=== PATIENT | female | born 1950 | race Caucasian/White ===

== ENCOUNTER → 2022-07-08 | Outpatient (CLI) | payer MEDICARE ==
[~2022-07-08] MED LIST: AMLO25TA PO; AZEL0.055 NARES; CYAN100050 PO; FOLI1TAB11 PO; FURO20TA2 PO; FURO40TA2 PO; GABA-282 PO; JARD1TAB PO; LEFL1TAB4 PO; LEVO50TA5 PO; LEVO88TA3 PO; MONT10TA97 PO; NEUR100C PO; POTA-151 PO; SPIR-10 PO; TRAM50TA2 PO; VITA-183 PO; VITA500C24 PO
[2022-07-08 14:50] VITALS: BP 130/84
== END ==
LOC: M WHC 14:08
PROVIDERS: ATTEND Surgery
DX: C50.212 Malignant neoplasm of upper-inner quadrant of left female breast (principal); R92.8 Other abnormal and inconclusive findings on diagnostic imaging of breast; N63.14 Unspecified lump in the right breast, lower inner quadrant

== ENCOUNTER → 2022-07-15 | Outpatient (CLI) | payer MEDICARE ==
[~2022-07-15] MED LIST changes: -AMLO25TA PO; -AZEL0.055 NARES; -CYAN100050 PO; -FOLI1TAB11 PO; -FURO40TA2 PO; -GABA-282 PO; -LEVO88TA3 PO; -MONT10TA97 PO; -NEUR100C PO; -TRAM50TA2 PO; -VITA500C24 PO
[2022-07-15 16:12] LABS: BLOOD UREA NITROGEN 14 MG/DL (9-23); CALCIUM LEVEL 9.2 MG/DL (8.3-10.6); CARBON DIOXIDE LEVEL 33 MMOL/L (20-31); CHLORIDE LEVEL 103 MMOL/L (98-107); CREATININE FOR GFR 0.97 MG/DL (0.55-1.30); GLOMERULAR FILTRATION RATE > 60.0 (>39); GLUCOSE, FASTING 105 MG/DL (74-106); POTASSIUM SERUM 3.6 MMOL/L (3.5-5.1); SODIUM LEVEL 140 MMOL/L (136-145)
== END ==
LOC: M PLALAB 14:36
PROVIDERS: ATTEND Surgery
DX: C50.912 Malignant neoplasm of unspecified site of left female breast (principal)

== ENCOUNTER → 2022-07-15 | Outpatient (CLI) | payer MEDICARE ==
[2022-07-15 14:09] VITALS: BP 130/82
== END ==
LOC: M WHCPRO 12:39
PROVIDERS: ATTEND Surgery
DX: N63.14 Unspecified lump in the right breast, lower inner quadrant (principal)
CPT/HCPCS: 19083; 36415; 77065; 80048; 88305; G0279

== ENCOUNTER → 2022-07-21 | Outpatient (CLI) | payer MEDICARE ==
[~2022-07-21] MED LIST changes: +AMLO25TA PO; +AZEL0.055 NARES; +CYAN100050 PO; +FOLI1TAB11 PO; +FURO40TA2 PO; +GABA-282 PO; +LEVO88TA3 PO; +MONT10TA97 PO; +NEUR100C PO; +TRAM50TA2 PO; +VITA500C24 PO
== END ==
LOC: M RAD 15:41
PROVIDERS: ATTEND Surgery
DX: C50.912 Malignant neoplasm of unspecified site of left female breast (principal)

== ENCOUNTER 2022-07-28 09:26 | Observation (INO) | payer MEDICARE ==
[~2022-07-28] VITALS: Ht 165.1 cm; Wt 108.4 kg
[~2022-07-28 09:26] MED LIST changes: +CYAN-1 PO; -CYAN100050 PO; -FURO40TA2 PO; -LEVO88TA3 PO; -TRAM50TA2 PO
[2022-07-28] MEDS ORDERED: LR 1,000 ML IV SCH ×3 (09:50→17:20)
[2022-07-28] MEDS ORDERED: INSULIN LISPRO (NovoLOG) PER UNIT SC PRN (09:50)
[2022-07-28] MEDS ORDERED: HEPARIN SOD (PORCINE) 5000UNITS/ML 1ML VIAL/SYRINGE SQ ONE (10:15)
[2022-07-28] MEDS ORDERED: CLINDAMYCIN 900 MG in IV 1 EA IV ONE (10:15)
[2022-07-28] MEDS ORDERED: LEVO88TA3 PO (10:28)
[2022-07-28] MEDS ORDERED: FURO40TA2 PO (10:28)
[2022-07-28] MEDS ORDERED: HOME MED LIST COMPLETE! XX SCH (10:30)
[2022-07-28] MEDS ORDERED: ONDANSETRON 4MG 2ML VIAL As Ordered ONE (10:59)
[2022-07-28] MEDS ORDERED: LIDOCAINE 2% 100MG/5ML SDV (FOR ANES.) As Ordered ONE (10:59)
[2022-07-28] MEDS ORDERED: fentaNYL 250 MCG/5 ML INJECTION As Ordered ONE (10:59)
[2022-07-28] MEDS ORDERED: propofoL 200 MG/20 ML VIAL As Ordered ONE (10:59)
[2022-07-28] MEDS ORDERED: ROCURONIUM BROMIDE 50MG/5ML VIAL As Ordered ONE (10:59)
[2022-07-28] MEDS ORDERED: MIDAZOLAM INJ 2MG/2ML VIAL As Ordered ONE (11:00)
[2022-07-28] MEDS ORDERED: ACETAMINOPHEN 1000MG 100ML IV BAG As Ordered ONE (14:42)
[2022-07-28] MEDS ORDERED: HYDROmorphone HCL 2MG/ML 1ML VIAL As Ordered ONE (14:43)
[2022-07-28] MEDS ORDERED: LACRILUBE (AKWA TEARS) OPHTH OINT 3.5GM As Ordered ONE (14:53)
[2022-07-28] MEDS ORDERED: SUGAMMADEX SODIUM 500 MG/5 ML VIAL (BRIDION) As Ordered ONE (15:14)
[2022-07-28] MEDS ORDERED: LABETALOL 100MG/20ML VIAL As Ordered ONE (17:04)
[2022-07-28] MEDS ORDERED: ONDANSETRON 4MG 2ML VIAL IV PRN ×2 (17:15→17:20)
[2022-07-28] MEDS ORDERED: METOCLOPRAMIDE INJ 10MG/2ML VIAL IV PRN (17:15)
[2022-07-28] MEDS ORDERED: ACETAMINOPHEN TAB 650MG DOSE (2X325MG) PO PRN (17:20)
[2022-07-28] MEDS: fentaNYL 100 MCG/2 ML INJECTION IV PRN ×2 (17:56→18:04)
[2022-07-28] MEDS ORDERED: traMADol 50 MG TAB PO PRN (18:00)
[2022-07-28] MEDS ORDERED: MORPHINE 2 MG/ML 1ML VIAL IV PRN (18:00)
[2022-07-28] MEDS ORDERED: DEXTROSE 50% 50ML SYRINGE IV PRN (18:35)
[2022-07-28] MEDS ORDERED: GLUCAGON INJ 1MG VIAL SC PRN (18:35)
[2022-07-28] MEDS ORDERED: GLUCOSE 4GM CHEW TABLET PO PRN (18:35)
[2022-07-28] MEDS: HYDROMORPHONE HCL 0.5 MG/ 0.5 ML SYRINGE IV PRN ×2 (19:36→19:43)
[2022-07-28] MEDS ORDERED: GABAPENTIN 300 MG CAP PO SCH (21:00)
[2022-07-28] MEDS ORDERED: INSULIN LISPRO (NovoLOG) PER UNIT SC SCH (21:00)
[2022-07-28] MEDS ORDERED: NORCO, ANEXSIA 5/325MG TABLET (HYDROcodone/ACETAMINOPHEN) PO PRN (21:05)
[2022-07-28 21:45] VITALS: BP 157/66; TEMP 97; O2SAT 94
[2022-07-28 22:17] VITALS: BP 119/60; TEMP 97; O2SAT 96
[2022-07-28 22:50] VITALS: BP 119/64; TEMP 96.8; O2SAT 95
[2022-07-28] MEDS: CLINDAMYCIN 900 MG in IV 1 EA IV SCH (23:36)
[2022-07-28] MEDS: HEPARIN SOD (PORCINE) 5000UNITS/ML 1ML VIAL/SYRINGE SQ SCH (23:37)
[2022-07-29 00:49] VITALS: BP 139/74; TEMP 97.2; O2SAT 94
[2022-07-29 02:06] VITALS: BP 114/67; TEMP 97; O2SAT 95
[2022-07-29] MEDS: CLINDAMYCIN 900 MG in IV 1 EA IV SCH ×2 (05:56→14:00)
[2022-07-29] MEDS: HEPARIN SOD (PORCINE) 5000UNITS/ML 1ML VIAL/SYRINGE SQ SCH ×2 (05:56→14:00)
[2022-07-29] MEDS ORDERED: LEVOTHYROXINE 88MCG TABLET (0.088 MG) PO SCH (06:00)
[2022-07-29 06:01] VITALS: BP 137/73; TEMP 96.8; O2SAT 94
[2022-07-29 06:16] LABS: BASO % 0.2 % (0.0-1.0); HEMATOCRIT 44.3 % (36.0-47.0); HEMOGLOBIN 14.3 g/dl (12.0-15.5); LYMPH # 0.7 10^3/uL (1.5-5.0); LYMPH % 7.3 % (24.0-44.0); MEAN CORPUSCULAR HEMOGLOBIN 32.1 pg (27.0-33.0); MEAN CORPUSCULAR HGB CONC 32.3 g/dl (32.0-36.5); MEAN CORPUSCULAR VOLUME 99.3 fl (80.0-96.0); MONO # 0.3 10^3/uL (0.0-0.8); MONO % 3.1 % (2.0-8.0); NEUTROPHILS # 7.9 10^3/uL (1.5-8.5); NEUTROPHILS % 89.1 % (36.0-66.0); PLATELET COUNT, AUTOMATED 214 10^3/uL (150-450); RED BLOOD COUNT 4.46 10^6/uL (4.00-5.40); WHITE BLOOD COUNT 8.9 10^3/uL (4.0-10.0)
[2022-07-29 06:52] LABS: ALBUMIN 3.5 G/DL (3.2-5.2); ALKALINE PHOSPHATASE 133 U/L (46-116); ALT/SGPT 25 U/L (7.0-40); AST/SGOT 34 U/L (<34); BILIRUBIN,TOTAL 0.8 MG/DL (0.3-1.2); BLOOD UREA NITROGEN 12 MG/DL (9-23); CALCIUM LEVEL 8.5 MG/DL (8.3-10.6); CARBON DIOXIDE LEVEL 28 MMOL/L (20-31); CHLORIDE LEVEL 105 MMOL/L (98-107); CREATININE FOR GFR 0.78 MG/DL (0.55-1.30); GLOMERULAR FILTRATION RATE > 60.0 (>39); GLUCOSE, FASTING 135 MG/DL (74-106); POTASSIUM SERUM 4.2 MMOL/L (3.5-5.1); SODIUM LEVEL 141 MMOL/L (136-145); TOTAL PROTEIN 6.3 G/DL (5.7-8.2)
[2022-07-29] MEDS ORDERED: INSULIN LISPRO (NovoLOG) PER UNIT SC SCH (07:30)
[2022-07-29 08:10] LABS: HEMOGLOBIN A1c 5.1 % (4.0-6.0)
[2022-07-29] MEDS ORDERED: SPIRONOLACTONE 25 MG TAB PO SCH (09:00)
[2022-07-29] MEDS ORDERED: FUROSEMIDE 40 MG TAB PO SCH (09:00)
[2022-07-29] MEDS ORDERED: POTASSIUM CHLORIDE 10MEQ SR TABLET PO SCH (09:00)
[2022-07-29] MEDS ORDERED: MONTELUKAST 10 MG TAB PO SCH (09:00)
[2022-07-29] MEDS ORDERED: FOLIC ACID 1MG TAB PO SCH (09:00)
[2022-07-29] MEDS ORDERED: ASCORBIC ACID 500 MG TAB PO SCH (09:00)
[2022-07-29 09:34] VITALS: BP 137/73
[2022-07-29 10:00] VITALS: BP 119/66; TEMP 97.5; O2SAT 96
[2022-07-29] MEDS ORDERED: TRAM50TA2 PO ×2 (11:29→12:48)
[2022-08-17] MEDS ORDERED: ACET-897 PO (22:05)
[2022-08-17] MEDS ORDERED: PERI12LIQ SSP (22:05)
[2022-08-17] MEDS ORDERED: GABA-1171 PO (22:05)
[2022-08-17] MEDS ORDERED: TRAM50TA2 PO (22:05)
[2022-08-17] MEDS ORDERED: ALBU8.5H INH (22:05)
[2022-08-21] MEDS ORDERED: LINE1TAB6 PO (08:50)
[2022-08-21] MEDS ORDERED: RISATAB3 PO (08:50)
[2022-08-21] MEDS ORDERED: CEPH500C PO (11:07)
[2022-08-21] MEDS ORDERED: DEXA4TA PO (19:24)
== END 2022-07-29 13:30 | disposition home or self-care (01) ==
LOC: M SDC 09:26 → M MS5PR 09:27
PROVIDERS: ADMIT Surgery; ATTEND Surgery
DX: C50.912 Malignant neoplasm of unspecified site of left female breast (principal); C77.3 Secondary and unspecified malignant neoplasm of axilla and upper limb lymph nodes; Z17.0 Estrogen receptor positive status [ER+]; I11.9 Hypertensive heart disease without heart failure; E78.5 Hyperlipidemia, unspecified; E03.9 Hypothyroidism, unspecified; E66.9 Obesity, unspecified; Z85.528 Personal history of other malignant neoplasm of kidney; Z87.891 Personal history of nicotine dependence; M06.9 Rheumatoid arthritis, unspecified; I50.9 Heart failure, unspecified; R60.9 Edema, unspecified; Z79.899 Other long term (current) drug therapy; Z88.0 Allergy status to penicillin; Z88.5 Allergy status to narcotic agent; Z88.2 Allergy status to sulfonamides; Z79.60 Long term (current) use of unspecified immunomodulators and immunosuppressants; Z79.1 Long term (current) use of non-steroidal anti-inflammatories (NSAID); G47.33 Obstructive sleep apnea (adult) (pediatric)
CPT/HCPCS: 19303; 36415; 38525; 78195; 80053; 83036; 85025; 86850; 86900; 86901; 87635; 88307; 96365; 96366; 96372; A9520; C9290; G0378; J0131; J1100; J1170; J2250; J2405; J3010

== ENCOUNTER → 2022-08-21 | Outpatient (CLI) | payer MEDICARE ==
[~2022-08-21] MED LIST changes: +ACET-897 PO; +ALBU8.5H INH; +CEPH500C PO; +DEXA4TA PO; +FURO40TA2 PO; +GABA-1171 PO; +LEVO88TA3 PO; +LINE1TAB6 PO; +PERI12LIQ SSP; +RISATAB3 PO; +TRAM50TA2 PO
== END ==
LOC: M ONCR 12:55
PROVIDERS: ATTEND General Practice
DX: C50.112 Malignant neoplasm of central portion of left female breast (principal); Z90.12 Acquired absence of left breast and nipple; Z85.528 Personal history of other malignant neoplasm of kidney; Z71.2 Person consulting for explanation of examination or test findings; Z87.891 Personal history of nicotine dependence; Z88.0 Allergy status to penicillin; Z88.1 Allergy status to other antibiotic agents; Z88.2 Allergy status to sulfonamides; Z88.5 Allergy status to narcotic agent; Z79.84 Long term (current) use of oral hypoglycemic drugs; Z79.890 Hormone replacement therapy; Z79.899 Other long term (current) drug therapy; Z97.8 Presence of other specified devices

== ENCOUNTER 2022-09-05 21:15 | Inpatient (IN) | payer MEDICARE ==
[~2022-09-05] VITALS: Ht 165.1 cm; Wt 107.9 kg
[2022-09-05] MEDS ORDERED: POTA-164 PO (21:25)
[2022-09-05] MEDS ORDERED: LEFL1TAB4 PO (21:25)
[2022-09-05] MEDS ORDERED: CEFTAROLINE FOSAMIL 600 MG in D5W MINI-BAG PLUS 50 ML IV ONE (22:05)
[2022-09-05 22:58] LABS: BASO # 0.1 10^3/uL (0.0-0.2); BASO % 0.4 % (0.0-1.0); EOS # 0.1 10^3/uL (0.0-0.5); EOS % 1.1 % (0.0-3.0); HEMATOCRIT 44.7 % (36.0-47.0); HEMOGLOBIN 14.6 g/dl (12.0-15.5); LYMPH # 1.4 10^3/uL (1.5-5.0); LYMPH % 12.1 % (24.0-44.0); MEAN CORPUSCULAR HEMOGLOBIN 32.2 pg (27.0-33.0); MEAN CORPUSCULAR HGB CONC 32.7 g/dl (32.0-36.5); MEAN CORPUSCULAR VOLUME 98.5 fl (80.0-96.0); MONO # 0.7 10^3/uL (0.0-0.8); MONO % 5.8 % (2.0-8.0); NEUTROPHILS # 9.4 10^3/uL (1.5-8.5); NEUTROPHILS % 80.3 % (36.0-66.0); PLATELET COUNT, AUTOMATED 260 10^3/uL (150-450); RED BLOOD COUNT 4.54 10^6/uL (4.00-5.40); WHITE BLOOD COUNT 11.7 10^3/uL (4.0-10.0)
[2022-09-05 23:00] LABS: BLOOD UREA NITROGEN 12 MG/DL (9-23); CALCIUM LEVEL 8.3 MG/DL (8.3-10.6); CARBON DIOXIDE LEVEL 26 MMOL/L (20-31); CHLORIDE LEVEL 103 MMOL/L (98-107); CREATININE FOR GFR 0.93 MG/DL (0.55-1.30); GLOMERULAR FILTRATION RATE > 60.0 (>39); GLUCOSE, FASTING 118 MG/DL (74-106); POTASSIUM SERUM 3.4 MMOL/L (3.5-5.1); SODIUM LEVEL 135 MMOL/L (136-145)
[2022-09-05] MEDS ORDERED: POTA-151 PO (23:32)
[2022-09-05] MEDS ORDERED: HOME MED LIST COMPLETE! XX SCH (23:35)
[2022-09-06] MEDS ORDERED: GABAPENTIN 100 MG CAP PO PRN (00:10)
[2022-09-06] MEDS ORDERED: POTASSIUM CHLORIDE 10MEQ SR TABLET PO ONE (00:15)
[2022-09-06] MEDS: LEVOTHYROXINE 88MCG TABLET (0.088 MG) PO SCH (06:26)
[2022-09-06] MEDS: HEPARIN SOD (PORCINE) 5000UNITS/ML 1ML VIAL/SYRINGE SQ SCH ×4 (06:26→21:34)
[2022-09-06 07:28] LABS: BASO % 0.3 % (0.0-1.0); EOS % 0.2 % (0.0-3.0); HEMATOCRIT 39.8 % (36.0-47.0); HEMOGLOBIN 13.1 g/dl (12.0-15.5); LYMPH # 1.2 10^3/uL (1.5-5.0); LYMPH % 8.5 % (24.0-44.0); MEAN CORPUSCULAR HEMOGLOBIN 32.3 pg (27.0-33.0); MEAN CORPUSCULAR HGB CONC 32.9 g/dl (32.0-36.5); MEAN CORPUSCULAR VOLUME 98.3 fl (80.0-96.0); MONO # 1.1 10^3/uL (0.0-0.8); MONO % 7.3 % (2.0-8.0); NEUTROPHILS % 83.1 % (36.0-66.0); PLATELET COUNT, AUTOMATED 212 10^3/uL (150-450); RED BLOOD COUNT 4.05 10^6/uL (4.00-5.40); WHITE BLOOD COUNT 14.5 10^3/uL (4.0-10.0)
[2022-09-06 08:00] LABS: ALKALINE PHOSPHATASE 110 U/L (46-116); ALT/SGPT 20 U/L (7.0-40); AST/SGOT 19 U/L (<34); BILIRUBIN,TOTAL 1.1 MG/DL (0.3-1.2); BLOOD UREA NITROGEN 12 MG/DL (9-23); CALCIUM LEVEL 7.9 MG/DL (8.3-10.6); CARBON DIOXIDE LEVEL 25 MMOL/L (20-31); CHLORIDE LEVEL 104 MMOL/L (98-107); CREATININE FOR GFR 0.88 MG/DL (0.55-1.30); GLOMERULAR FILTRATION RATE > 60.0 (>39); GLUCOSE, FASTING 102 MG/DL (74-106); MAGNESIUM LEVEL 1.7 MG/DL (1.8-2.4); POTASSIUM SERUM 4.1 MMOL/L (3.5-5.1); SODIUM LEVEL 134 MMOL/L (136-145); TOTAL PROTEIN 5.6 G/DL (5.7-8.2)
[2022-09-06] MEDS: MONTELUKAST 10 MG TAB PO SCH (08:31)
[2022-09-06] MEDS: ACETAMINOPHEN TAB 650MG DOSE (2X325MG) PO PRN ×2 (08:31→21:24)
[2022-09-06] MEDS: SPIRONOLACTONE 25 MG TAB PO SCH (08:31)
[2022-09-06] MEDS: FUROSEMIDE 40 MG TAB PO SCH (08:31)
[2022-09-06] MEDS: CEFTAROLINE FOSAMIL 600 MG in D5W MINI-BAG PLUS 50 ML IV SCH ×2 (10:49→21:24)
[2022-09-06] MEDS: ASCORBIC ACID 500 MG TAB PO SCH (12:34)
[2022-09-06] MEDS: FOLIC ACID 1MG TAB PO SCH (12:34)
[2022-09-06 14:00] VITALS: BP 130/61; TEMP 98.4; O2SAT 98
[2022-09-06 19:00] VITALS: TEMP 100.6
[2022-09-06 22:00] VITALS: BP 130/61; TEMP 98.8; O2SAT 99
[2022-09-07] MEDS: LEVOTHYROXINE 88MCG TABLET (0.088 MG) PO SCH (05:40)
[2022-09-07 06:00] VITALS: BP 138/74; TEMP 97.7; O2SAT 96
[2022-09-07] MEDS: HEPARIN SOD (PORCINE) 5000UNITS/ML 1ML VIAL/SYRINGE SQ SCH ×4 (06:00→21:36)
[2022-09-07] MEDS: MUPIROCIN 2% OINT 22 GM TUBE TOP SCH ×2 (06:27→09:20)
[2022-09-07 06:31] LABS: HEMOGLOBIN 12.9 g/dl (12.0-15.5); MEAN CORPUSCULAR HEMOGLOBIN 32.5 pg (27.0-33.0); MEAN CORPUSCULAR HGB CONC 32.3 g/dl (32.0-36.5); MEAN CORPUSCULAR VOLUME 100.8 fl (80.0-96.0); PLATELET COUNT, AUTOMATED 174 10^3/uL (150-450); RED BLOOD COUNT 3.97 10^6/uL (4.00-5.40)
[2022-09-07 07:00] LABS: BLOOD UREA NITROGEN 11 MG/DL (9-23); CALCIUM LEVEL 8.1 MG/DL (8.3-10.6); CARBON DIOXIDE LEVEL 27 MMOL/L (20-31); CHLORIDE LEVEL 106 MMOL/L (98-107); CREATININE FOR GFR 0.89 MG/DL (0.55-1.30); GLOMERULAR FILTRATION RATE > 60.0 (>39); GLUCOSE, FASTING 91 MG/DL (74-106); POTASSIUM SERUM 3.5 MMOL/L (3.5-5.1); SODIUM LEVEL 139 MMOL/L (136-145)
[2022-09-07] MEDS: ASCORBIC ACID 500 MG TAB PO SCH (09:20)
[2022-09-07] MEDS: FOLIC ACID 1MG TAB PO SCH (09:20)
[2022-09-07] MEDS: MONTELUKAST 10 MG TAB PO SCH (09:20)
[2022-09-07] MEDS: CEFTAROLINE FOSAMIL 600 MG in D5W MINI-BAG PLUS 50 ML IV SCH ×2 (09:20→21:36)
[2022-09-07] MEDS: SPIRONOLACTONE 25 MG TAB PO SCH (09:21)
[2022-09-07] MEDS: FUROSEMIDE 40 MG TAB PO SCH (09:21)
[2022-09-07 14:00] VITALS: BP 120/73; TEMP 98.1; O2SAT 96
[2022-09-07 22:00] VITALS: BP 128/70; TEMP 97.9; O2SAT 97
[2022-09-08 05:17] VITALS: BP 138/68; TEMP 97.6; O2SAT 97
[2022-09-08] MEDS: LEVOTHYROXINE 88MCG TABLET (0.088 MG) PO SCH (05:38)
[2022-09-08] MEDS: HEPARIN SOD (PORCINE) 5000UNITS/ML 1ML VIAL/SYRINGE SQ SCH ×3 (05:39→21:00)
[2022-09-08 05:57] LABS: HEMATOCRIT 40.2 % (36.0-47.0); MEAN CORPUSCULAR HEMOGLOBIN 31.9 pg (27.0-33.0); MEAN CORPUSCULAR HGB CONC 32.3 g/dl (32.0-36.5); MEAN CORPUSCULAR VOLUME 98.5 fl (80.0-96.0); PLATELET COUNT, AUTOMATED 197 10^3/uL (150-450); RED BLOOD COUNT 4.08 10^6/uL (4.00-5.40); WHITE BLOOD COUNT 5.3 10^3/uL (4.0-10.0)
[2022-09-08] MEDS ORDERED: LevoFLOXacin 750 MG TABLET PO SCH (06:00)
[2022-09-08 06:27] LABS: BLOOD UREA NITROGEN 10 MG/DL (9-23); CALCIUM LEVEL 8.8 MG/DL (8.3-10.6); CARBON DIOXIDE LEVEL 29 MMOL/L (20-31); CHLORIDE LEVEL 107 MMOL/L (98-107); CREATININE FOR GFR 0.96 MG/DL (0.55-1.30); GLOMERULAR FILTRATION RATE > 60.0 (>39); GLUCOSE, FASTING 99 MG/DL (74-106); POTASSIUM SERUM 3.6 MMOL/L (3.5-5.1); SODIUM LEVEL 141 MMOL/L (136-145)
[2022-09-08] MEDS: FOLIC ACID 1MG TAB PO SCH (08:42)
[2022-09-08] MEDS: FUROSEMIDE 40 MG TAB PO SCH (08:42)
[2022-09-08] MEDS: SPIRONOLACTONE 25 MG TAB PO SCH (08:42)
[2022-09-08] MEDS: ASCORBIC ACID 500 MG TAB PO SCH (08:43)
[2022-09-08] MEDS: MUPIROCIN 2% OINT 22 GM TUBE TOP SCH (08:43)
[2022-09-08] MEDS: MONTELUKAST 10 MG TAB PO SCH (08:43)
[2022-09-08] MEDS ORDERED: LEVO1TAB40 PO (12:30)
[2022-09-08] MEDS ORDERED: MUPI2OI TOP (12:30)
[2022-09-08 14:00] VITALS: BP 126/80; TEMP 98.6; O2SAT 95
[2022-09-08] MEDS: CEFDINIR 300 MG CAP (OMNICEF) PO SCH (20:50)
[2022-09-08 22:00] VITALS: BP 129/82; TEMP 97.9; O2SAT 96
[2022-09-09 06:00] VITALS: BP 112/70; TEMP 97.7; O2SAT 97
[2022-09-09] MEDS ORDERED: LEVOTHYROXINE 88MCG TABLET (0.088 MG) PO SCH (06:00)
[2022-09-09] MEDS: HEPARIN SOD (PORCINE) 5000UNITS/ML 1ML VIAL/SYRINGE SQ SCH (06:00)
[2022-09-09 06:10] LABS: HEMATOCRIT 38.4 % (36.0-47.0); HEMOGLOBIN 12.7 g/dl (12.0-15.5); MEAN CORPUSCULAR HEMOGLOBIN 32.4 pg (27.0-33.0); MEAN CORPUSCULAR HGB CONC 33.1 g/dl (32.0-36.5); PLATELET COUNT, AUTOMATED 212 10^3/uL (150-450); RED BLOOD COUNT 3.92 10^6/uL (4.00-5.40); WHITE BLOOD COUNT 4.8 10^3/uL (4.0-10.0)
[2022-09-09 06:39] LABS: CALCIUM LEVEL 8.7 MG/DL (8.3-10.6); CREATININE FOR GFR 0.98 MG/DL (0.55-1.30); GLOMERULAR FILTRATION RATE 59.2 (>39); POTASSIUM SERUM 3.4 MMOL/L (3.5-5.1)
[2022-09-09] MEDS: MUPIROCIN 2% OINT 22 GM TUBE TOP SCH ×2 (09:00→09:20)
[2022-09-09] MEDS: FUROSEMIDE 40 MG TAB PO SCH (09:18)
[2022-09-09] MEDS: SPIRONOLACTONE 25 MG TAB PO SCH (09:18)
[2022-09-09 09:19] VITALS: BP 122/57
[2022-09-09] MEDS: ASCORBIC ACID 500 MG TAB PO SCH (09:19)
[2022-09-09] MEDS: CEFDINIR 300 MG CAP (OMNICEF) PO SCH (09:19)
[2022-09-09] MEDS: MONTELUKAST 10 MG TAB PO SCH (09:19)
[2022-09-09] MEDS: FOLIC ACID 1MG TAB PO SCH (09:19)
[2022-09-09] MEDS ORDERED: CEFD300CAP PO (13:07)
== END 2022-09-09 14:57 | disposition home or self-care (01) | DRG 863 ==
LOC: M ED 21:15 → M ED INP 23:47 → ENRESERV 09-06 11:12 → M MSPAV 09-06 12:24
PROVIDERS: ADMIT Family Medicine; ATTEND Student in an Organized Health Care Education/Training Program
DX: T81.49XA Infection following a procedure, other surgical site, initial encounter (principal); L76.82 Other postprocedural complications of skin and subcutaneous tissue; I50.9 Heart failure, unspecified; E03.9 Hypothyroidism, unspecified; I11.0 Hypertensive heart disease with heart failure; E78.5 Hyperlipidemia, unspecified; N61.0 Mastitis without abscess; E87.6 Hypokalemia; G62.9 Polyneuropathy, unspecified; G47.33 Obstructive sleep apnea (adult) (pediatric); M06.9 Rheumatoid arthritis, unspecified; E11.9 Type 2 diabetes mellitus without complications; Z88.0 Allergy status to penicillin; Z88.2 Allergy status to sulfonamides; Z88.8 Allergy status to other drugs, medicaments and biological substances; Z79.899 Other long term (current) drug therapy; Z88.5 Allergy status to narcotic agent; Y83.8 Other surgical procedures as the cause of abnormal reaction of the patient, or of later complication, without mention of misadventure at the time of the procedure

== ENCOUNTER → 2022-10-27 | Outpatient (CLI) | payer MEDICARE ==
[~2022-10-27] VITALS: Ht 165.1 cm; Wt 104.0 kg
[~2022-10-27] MED LIST changes: +CEFD300CAP PO; +LETR2.5T2 PO; +LEVO1TAB40 PO; +LIDO30CR18 TOP; +LIDOCAINE W/EPINEPHRINE 1% 20ML VIAL As Ordered ONE; +MIDAZOLAM INJ 2MG/2ML VIAL As Ordered ONE; +MUPI2OI TOP; +NS 1,000 ML IV SCH; +ONDA-84 PO; +POTA-164 PO; +PROC10TA5 PO; +VANCOMYCIN HCL 1,000 MG, VIAL MATE ADAPTER 1 EACH in NS 250 ML IV ONE; +ceFAZolin 2 GM/D5W 50 ML IV BAG As Ordered ONE; +ceFAZolin SOD 2 GM in IV 1 EA IV ONE; +fentaNYL 100 MCG/2 ML INJECTION As Ordered ONE
[2022-10-27 14:54] VITALS: TEMP 98
[2022-10-27 19:00] VITALS: BP 128/72; O2SAT 98
== END ==
LOC: M IRPRO 14:29
PROVIDERS: ATTEND Specialist
DX: C50.919 Malignant neoplasm of unspecified site of unspecified female breast (principal)
CPT/HCPCS: 36561; 99152; 99153; J0690; J2250; J3010

== ENCOUNTER 2022-12-14 16:16 | Outpatient (CLI) | payer MEDICARE ==
[~2022-12-14] VITALS: Ht 166.4 cm; Wt 103.4 kg
[~2022-12-14 16:16] MED LIST changes: +AZEL1SPR3 NARES; +DOXY50CA51 PO; +FIDA200TA PO; +HYDR-3715 PO; -LIDOCAINE W/EPINEPHRINE 1% 20ML VIAL As Ordered ONE; +LOPE2TAB12 PO; -MIDAZOLAM INJ 2MG/2ML VIAL As Ordered ONE; -NS 1,000 ML IV SCH; +SODIUM CHLORIDE 0.9% INJ 10 ML SYR IV SCH; +VANC125C3 PO; -VANCOMYCIN HCL 1,000 MG, VIAL MATE ADAPTER 1 EACH in NS 250 ML IV ONE; +VITA200031 PO; -ceFAZolin 2 GM/D5W 50 ML IV BAG As Ordered ONE; -ceFAZolin SOD 2 GM in IV 1 EA IV ONE; -fentaNYL 100 MCG/2 ML INJECTION As Ordered ONE
[2022-12-14 16:25] VITALS: BP 145/76; O2SAT 98
[2022-12-14] MEDS ORDERED: BEZLOTOXUMAB 1,000 MG in NS 100 ML IV ONE (17:00)
[2022-12-14 18:09] VITALS: BP 150/78; O2SAT 98
== END 2022-12-14 18:10 ==
LOC: M INFU 16:16
PROVIDERS: ATTEND Internal Medicine Infectious Disease
DX: A04.72 Enterocolitis due to Clostridium difficile, not specified as recurrent (principal); Z88.0 Allergy status to penicillin; Z88.2 Allergy status to sulfonamides; Z88.5 Allergy status to narcotic agent; Z88.8 Allergy status to other drugs, medicaments and biological substances
CPT/HCPCS: 96365; J0565

== ENCOUNTER 2023-05-28 11:30 | Outpatient (RCR) | payer MEDICARE ==
[~2023-05-28 11:30] MED LIST changes: +ARIM1TAB5 PO; +CALC1TAB PO; +FLUC150T9 PO; -LEFL1TAB4 PO; +LEFL20TA15 PO; +NYST10006 TOP; -SODIUM CHLORIDE 0.9% INJ 10 ML SYR IV SCH; +VANC1CAP6 PO; +VANC1CAP7 PO; +ZINC220CA PO
== END 2023-05-30 ==
LOC: M ONCR 11:30
PROVIDERS: ATTEND General Practice
DX: Z51.0 Encounter for antineoplastic radiation therapy (principal); C50.112 Malignant neoplasm of central portion of left female breast

== ENCOUNTER → 2023-06-29 | Outpatient (RCR) | payer MEDICARE ==
[~2023-06-29] MED LIST changes: +DOXY50CA35 PO; -DOXY50CA51 PO; +TRIA1CR80 TOP
== END ==
LOC: M ONCR 05-31 11:35
PROVIDERS: ATTEND General Practice
DX: Z51.0 Encounter for antineoplastic radiation therapy (principal); C50.112 Malignant neoplasm of central portion of left female breast

== ENCOUNTER 2023-07-05 11:30 | Outpatient (RCR) | payer MEDICARE ==
[2023-07-09] MEDS ORDERED: DOXY100C3 PO ×2 (15:02→16:36)
== END 2023-07-30 ==
LOC: M ONCR 11:30
PROVIDERS: ATTEND General Practice
DX: Z51.0 Encounter for antineoplastic radiation therapy (principal); C50.112 Malignant neoplasm of central portion of left female breast

== ENCOUNTER → 2023-07-12 | Outpatient (CLI) | payer MEDICARE ==
[~2023-07-12] MED LIST changes: +DOXY100C3 PO
== END ==
LOC: M ONCR 11:53
PROVIDERS: ATTEND General Practice
DX: L59.8 Other specified disorders of the skin and subcutaneous tissue related to radiation (principal); Z90.12 Acquired absence of left breast and nipple

== ENCOUNTER → 2023-07-19 | Outpatient (CLI) | payer MEDICARE | LOC: M ONCR 12:00 | PROVIDERS: ATTEND General Practice | DX: L59.8 Other specified disorders of the skin and subcutaneous tissue related to radiation (principal) ==

== ENCOUNTER → 2023-07-19 | Outpatient (CLI) | payer MEDICARE | LOC: M WHC 09:48 | PROVIDERS: ATTEND Specialist | DX: Z13.820 Encounter for screening for osteoporosis (principal); L59.8 Other specified disorders of the skin and subcutaneous tissue related to radiation; R92.331 Mammographic heterogeneous density, right breast; R92.2 Inconclusive mammogram; Z79.811 Long term (current) use of aromatase inhibitors; Z80.3 Family history of malignant neoplasm of breast | CPT/HCPCS: 77065; 77080; G0279; G0463 ==

== ENCOUNTER → 2023-07-29 | Outpatient (CLI) | payer MEDICARE | LOC: M WHC 10:01 | PROVIDERS: ATTEND Specialist | DX: R92.2 Inconclusive mammogram (principal) | CPT/HCPCS: 76642; 77065; G0279 ==

== ENCOUNTER 2023-11-13 19:44 | Emergency (ER) | payer MEDICARE ==
[~2023-11-13] VITALS: Ht 165.1 cm; Wt 100.0 kg
[~2023-11-13 19:44] MED LIST changes: -AZEL0.055 NARES; +AZEL1SPR4 NARES
[2023-11-13] MEDS: ONDANSETRON 4MG ORAL DISINTEGRATING TAB PO ONE (20:57)
[2023-11-13] MEDS: MORPHINE 10 MG/ML 1ML VIAL IM ONE (20:58)
[2023-11-13] MEDS ORDERED: HYDR-3713 PO (22:01)
[2023-11-13 22:11] VITALS: BP 126/60; TEMP 97.1; O2SAT 99
[2023-11-13] MEDS: NORCO 5/325MG TABLET (HOME DOSE PACK) PO ONE (22:12)
== END 2023-11-13 22:32 | disposition home or self-care (01) ==
LOC: M ED 19:44
DX: S42.351A Displaced comminuted fracture of shaft of humerus, right arm, initial encounter for closed fracture (principal); W01.0XXA Fall on same level from slipping, tripping and stumbling without subsequent striking against object, initial encounter; E03.9 Hypothyroidism, unspecified; E78.5 Hyperlipidemia, unspecified; I10 Essential (primary) hypertension; Y92.009 Unspecified place in unspecified non-institutional (private) residence as the place of occurrence of the external cause; Y93.89 Activity, other specified; Y99.9 Unspecified external cause status; Z86.79 Personal history of other diseases of the circulatory system; Z88.2 Allergy status to sulfonamides; Z88.5 Allergy status to narcotic agent; Z88.8 Allergy status to other drugs, medicaments and biological substances; Z91.048 Other nonmedicinal substance allergy status; Z79.83 Long term (current) use of bisphosphonates; Z79.899 Other long term (current) drug therapy

== ENCOUNTER → 2023-11-15 | Outpatient (CLI) | payer MEDICARE ==
[~2023-11-15] MED LIST changes: +HYDR-3713 PO
[2023-11-15 15:27] LABS: ALBUMIN 3.6 G/DL (3.2-5.2); ALKALINE PHOSPHATASE 100 U/L (46-116); ALT/SGPT 12 U/L (7.0-40); AST/SGOT 16 U/L (<34); BILIRUBIN,TOTAL 1.3 MG/DL (0.3-1.2); BLOOD UREA NITROGEN 13 MG/DL (9-23); CALCIUM LEVEL 9.1 MG/DL (8.3-10.6); CARBON DIOXIDE LEVEL 29 MMOL/L (20-31); CHLORIDE LEVEL 102 MMOL/L (98-107); CREATININE FOR GFR 0.88 MG/DL (0.55-1.30); GLOMERULAR FILTRATION RATE > 60.0 (>39); GLUCOSE, FASTING 97 MG/DL (74-106); POTASSIUM SERUM 3.9 MMOL/L (3.5-5.1); SODIUM LEVEL 136 MMOL/L (136-145); TOTAL PROTEIN 6.5 G/DL (5.7-8.2)
[2023-11-15 15:30] LABS: TOTAL 25(OH) VITAMIN D 58.6 NG/ML (20.0-100.0)
[2023-11-15 15:31] LABS: BASO # 0.1 10^3/uL (0.0-0.2); BASO % 0.8 % (0.0-1.0); EOS # 0.1 10^3/uL (0.0-0.5); EOS % 2.1 % (0.0-3.0); HEMATOCRIT 35.3 % (36.0-47.0); HEMOGLOBIN 11.5 g/dl (12.0-15.5); LYMPH % 16.1 % (24.0-44.0); MEAN CORPUSCULAR HEMOGLOBIN 33.9 pg (27.0-33.0); MEAN CORPUSCULAR HGB CONC 32.6 g/dl (32.0-36.5); MEAN CORPUSCULAR VOLUME 104.1 fl (80.0-96.0); MONO # 0.6 10^3/uL (0.0-0.8); MONO % 8.8 % (2.0-8.0); NEUTROPHILS # 4.6 10^3/uL (1.5-8.5); NEUTROPHILS % 71.9 % (36.0-66.0); PLATELET COUNT, AUTOMATED 186 10^3/uL (150-450); RED BLOOD COUNT 3.39 10^6/uL (4.00-5.40); WHITE BLOOD COUNT 6.3 10^3/uL (4.0-10.0)
[2023-11-15 15:39] LABS: INR 1.1; PROTHROMBIN TIME 13.9 SECONDS (12.5-14.5)
[2023-11-15 16:15] LABS: HEMOGLOBIN A1c 4.8 % (4.0-6.0)
== END ==
LOC: M PLALAB 11:50
PROVIDERS: ATTEND Orthopaedic Surgery
DX: S42.201A Unspecified fracture of upper end of right humerus, initial encounter for closed fracture (principal)

== ENCOUNTER → 2023-11-15 | Outpatient (CLI) | payer MEDICARE | LOC: M SOG 10:22 | PROVIDERS: ATTEND Orthopaedic Surgery | DX: S42.201A Unspecified fracture of upper end of right humerus, initial encounter for closed fracture (principal); M25.511 Pain in right shoulder; Z79.899 Other long term (current) drug therapy ==

== ENCOUNTER 2023-11-22 06:02 | Observation (INO) | payer MEDICARE ==
[2023-11-22] VITALS (7 sets, daily range): BP systolic 133–152; BP diastolic 64–87; TEMP 97–98.1; O2SAT 93–95
[~2023-11-22] VITALS: Ht 165.1 cm; Wt 99.5 kg
[2023-11-22] MEDS ORDERED: ACETAMINOPHEN 1000MG 100ML IV BAG As Ordered ONE (07:00)
[2023-11-22] MEDS ORDERED: propofoL 200 MG/20 ML VIAL As Ordered ONE (07:02)
[2023-11-22] MEDS ORDERED: VASOPRESSIN INJ 20UNITS/ML 1ML VIAL As Ordered ONE (07:03)
[2023-11-22] MEDS ORDERED: ONDANSETRON 4MG 2ML VIAL As Ordered ONE (07:03)
[2023-11-22] MEDS ORDERED: ROCURONIUM BROMIDE 50MG/5ML VIAL As Ordered ONE (07:03)
[2023-11-22] MEDS ORDERED: LIDOCAINE 2% 100MG/5ML SDV (FOR ANES.) As Ordered ONE (07:03)
[2023-11-22] MEDS ORDERED: SODIUM CHLORIDE 0.9% INJ 10 ML SYR IV PRN (07:05)
[2023-11-22] MEDS ORDERED: fentaNYL 100 MCG/2 ML INJECTION As Ordered ONE (07:13)
[2023-11-22] MEDS: LR 1,000 ML IV SCH ×2 (07:28→12:15)
[2023-11-22] MEDS: ceFAZolin 2 GM/D5W 50 ML IV BAG As Ordered ONE (07:44)
[2023-11-22] MEDS: TRANEXAMIC ACID 100 MG/ML 10ML VIAL As Ordered ONE (07:47)
[2023-11-22] MEDS ORDERED: SUGAMMADEX SODIUM 500 MG/5 ML VIAL (BRIDION) As Ordered ONE (08:58)
[2023-11-22] MEDS: VANCOMYCIN 1000MG/20ML VIAL As Ordered ONE (11:55)
[2023-11-22] MEDS ORDERED: ONDANSETRON 4MG 2ML VIAL IV PRN ×2 (12:15→14:45)
[2023-11-22] MEDS ORDERED: HYDROMORPHONE HCL 0.5 MG/ 0.5 ML SYRINGE IV PRN (12:15)
[2023-11-22] MEDS ORDERED: MIDAZOLAM INJ 2MG/2ML VIAL IV PRN (12:30)
[2023-11-22] MEDS: ROPIvacaine 0.5% 30ML VIAL PN ONE (12:30)
[2023-11-22] MEDS: LIDOCAINE 1% SDV 5ML VIAL PN ONE (12:30)
[2023-11-22] MEDS ORDERED: fentaNYL 100 MCG/2 ML INJECTION IV PRN (12:30)
[2023-11-22] MEDS ORDERED: OXYC1TAB23 PO (12:42)
[2023-11-22] MEDS ORDERED: CEFA500C2 PO (12:42)
[2023-11-22] MEDS: fentaNYL 100 MCG/2 ML INJECTION IV PRN (13:06)
[2023-11-22] MEDS ORDERED: oxyCODONE 5MG TAB PO PRN (14:45)
[2023-11-22] MEDS ORDERED: GABAPENTIN 100 MG CAP PO PRN (14:55)
[2023-11-22] MEDS: oxyCODONE 5MG TAB PO PRN (16:10)
[2023-11-22] MEDS: ceFAZolin SOD 1 GM in D5W MINI-BAG PLUS 50 ML IV SCH (20:33)
[2023-11-22] MEDS: SENOKOT S TAB PO SCH (20:36)
[2023-11-23 00:24] VITALS: BP 126/61; TEMP 97.7; O2SAT 93
[2023-11-23 04:21] VITALS: BP 135/66; TEMP 97.9; O2SAT 93
[2023-11-23] MEDS: LEVOTHYROXINE 88MCG TABLET (0.088 MG) PO SCH (04:54)
[2023-11-23 06:36] LABS: BASO % 0.1 % (0.0-1.0); HEMATOCRIT 30.3 % (36.0-47.0); LYMPH # 0.5 10^3/uL (1.5-5.0); LYMPH % 6.2 % (24.0-44.0); MEAN CORPUSCULAR VOLUME 103.1 fl (80.0-96.0); MONO # 0.5 10^3/uL (0.0-0.8); MONO % 5.8 % (2.0-8.0); NEUTROPHILS # 7.3 10^3/uL (1.5-8.5); NEUTROPHILS % 87.4 % (36.0-66.0); PLATELET COUNT, AUTOMATED 226 10^3/uL (150-450); RED BLOOD COUNT 2.94 10^6/uL (4.00-5.40); WHITE BLOOD COUNT 8.3 10^3/uL (4.0-10.0)
[2023-11-23 07:09] LABS: BLOOD UREA NITROGEN 13 MG/DL (9-23); CALCIUM LEVEL 8.8 MG/DL (8.3-10.6); CARBON DIOXIDE LEVEL 28 MMOL/L (20-31); CHLORIDE LEVEL 105 MMOL/L (98-107); CREATININE FOR GFR 0.73 MG/DL (0.55-1.30); GLOMERULAR FILTRATION RATE > 60.0 (>39); GLUCOSE, FASTING 132 MG/DL (74-106); POTASSIUM SERUM 4.2 MMOL/L (3.5-5.1); SODIUM LEVEL 140 MMOL/L (136-145)
[2023-11-23] MEDS: MONTELUKAST 10 MG TAB PO SCH (08:17)
[2023-11-23] MEDS: POTASSIUM CHLORIDE 10MEQ SR TABLET PO SCH (08:17)
[2023-11-23] MEDS: FUROSEMIDE 40 MG TAB PO SCH (08:18)
[2023-11-23] MEDS: SPIRONOLACTONE 25 MG TAB PO SCH (08:18)
[2023-11-23] MEDS: FOLIC ACID 1MG TAB PO SCH (08:18)
[2023-11-23] MEDS: ASCORBIC ACID 500 MG TAB PO SCH (08:18)
[2023-11-23 08:19] VITALS: BP 136/68
[2023-11-23] MEDS: ACETAMINOPHEN TAB 650MG DOSE (2X325MG) PO PRN (08:21)
[2023-11-23] MEDS: ENOXAPARIN 40MG/0.4ML SYRINGE (J1650 PER 10MG) SC SCH (08:22)
[2023-11-23] MEDS: ZINC SULFATE 220 MG CAP PO SCH (08:24)
[2023-11-23] MEDS: FLUBLOK(EGGFREE) TRIVAL(24-25) VACCINE PF 0.5ML SYRINGE 18YRS & OLDER IM.IMMUN ONE (09:00)
[2023-11-23] MEDS ORDERED: ECOT81TA5 PO (10:20)
[2023-11-29] MEDS ORDERED: HYDR-3713 (11:58)
== END 2023-11-23 13:20 | disposition home or self-care (01) ==
LOC: M SDC 06:02 → M RR INP 06:03 → M MS5PR 15:10
PROVIDERS: ADMIT Orthopaedic Surgery; ATTEND Orthopaedic Surgery
DX: S42.231A 3-part fracture of surgical neck of right humerus, initial encounter for closed fracture (principal); W54.1XXA Struck by dog, initial encounter; Y92.89 Other specified places as the place of occurrence of the external cause; Y99.9 Unspecified external cause status; Y93.9 Activity, unspecified; I10 Essential (primary) hypertension; E78.5 Hyperlipidemia, unspecified; E03.9 Hypothyroidism, unspecified; R60.9 Edema, unspecified; Z88.5 Allergy status to narcotic agent; Z88.1 Allergy status to other antibiotic agents; Z88.2 Allergy status to sulfonamides; G47.33 Obstructive sleep apnea (adult) (pediatric); Z92.3 Personal history of irradiation; Z92.21 Personal history of antineoplastic chemotherapy; Z85.3 Personal history of malignant neoplasm of breast; Z79.899 Other long term (current) drug therapy
CPT/HCPCS: 23615; 36415; 73060; 76000; 80048; 85025; 96365; 96366; 97165; 97530; C1713; G0378; J0131; J0665; J0690; J1100; J2405; J2598; J3010; J3370

== ENCOUNTER → 2023-11-29 | Outpatient (CLI) | payer MEDICARE ==
[~2023-11-29] MED LIST changes: +CEFA500C2 PO; -DOXY50CA35 PO; +DOXY50CA50 PO; +ECOT81TA5 PO; +GABA-1172 PO; -GABA-282 PO; +HYDR-3713; +OXYC1TAB23 PO
== END ==
LOC: M SOG 07:21
PROVIDERS: ATTEND Orthopaedic Surgery
DX: S42.201A Unspecified fracture of upper end of right humerus, initial encounter for closed fracture (principal); W18.30XA Fall on same level, unspecified, initial encounter; Y92.009 Unspecified place in unspecified non-institutional (private) residence as the place of occurrence of the external cause

== ENCOUNTER → 2023-12-10 | Outpatient (CLI) | payer MEDICARE | LOC: M SOG 07:55 | PROVIDERS: ATTEND Orthopaedic Surgery | DX: S42.351D Displaced comminuted fracture of shaft of humerus, right arm, subsequent encounter for fracture with routine healing (principal) ==

== ENCOUNTER → 2023-12-29 | Outpatient (CLI) | payer MEDICARE | LOC: M SOG 07:27 | PROVIDERS: ATTEND Orthopaedic Surgery | DX: S42.351D Displaced comminuted fracture of shaft of humerus, right arm, subsequent encounter for fracture with routine healing (principal) ==

== ENCOUNTER → 2024-01-05 | Outpatient (CLI) | payer MEDICARE | LOC: M ONCR 11:14 | PROVIDERS: ATTEND General Practice | DX: C50.112 Malignant neoplasm of central portion of left female breast (principal); M79.621 Pain in right upper arm; M81.0 Age-related osteoporosis without current pathological fracture; Z90.12 Acquired absence of left breast and nipple; Z79.818 Long term (current) use of other agents affecting estrogen receptors and estrogen levels; Z79.82 Long term (current) use of aspirin; Z79.899 Other long term (current) drug therapy; R29.6 Repeated falls; Z87.81 Personal history of (healed) traumatic fracture; Z87.891 Personal history of nicotine dependence; Z88.1 Allergy status to other antibiotic agents; Z88.2 Allergy status to sulfonamides; Z88.5 Allergy status to narcotic agent; Z92.21 Personal history of antineoplastic chemotherapy; Z92.3 Personal history of irradiation ==

== ENCOUNTER → 2024-01-14 | Outpatient (CLI) | payer MEDICARE | LOC: M SOG 14:14 | PROVIDERS: ATTEND Orthopaedic Surgery | DX: S42.351A Displaced comminuted fracture of shaft of humerus, right arm, initial encounter for closed fracture (principal); L03.113 Cellulitis of right upper limb; Y93.9 Activity, unspecified; Y92.9 Unspecified place or not applicable ==

== ENCOUNTER → 2024-01-14 | Outpatient (CLI) | payer MEDICARE ==
[2024-01-14 17:36] LABS: BASO # 0.1 10^3/uL (0.0-0.2); EOS # 0.1 10^3/uL (0.0-0.5); EOS % 2.3 % (0.0-3.0); HEMATOCRIT 37.3 % (36.0-47.0); HEMOGLOBIN 12.2 g/dl (12.0-15.5); LYMPH # 1.1 10^3/uL (1.5-5.0); LYMPH % 22.3 % (24.0-44.0); MEAN CORPUSCULAR HEMOGLOBIN 34.6 pg (27.0-33.0); MEAN CORPUSCULAR HGB CONC 32.7 g/dl (32.0-36.5); MEAN CORPUSCULAR VOLUME 105.7 fl (80.0-96.0); MONO # 0.5 10^3/uL (0.0-0.8); MONO % 11.1 % (2.0-8.0); NEUTROPHILS # 3.1 10^3/uL (1.5-8.5); NEUTROPHILS % 62.9 % (36.0-66.0); PLATELET COUNT, AUTOMATED 246 10^3/uL (150-450); RED BLOOD COUNT 3.53 10^6/uL (4.00-5.40); WHITE BLOOD COUNT 4.9 10^3/uL (4.0-10.0)
[2024-01-14 17:42] LABS: ERYTHROCYTE SEDIMENTATION RATE 56 mm/hr (0-30)
== END ==
LOC: M PLALAB 15:09
PROVIDERS: ATTEND Orthopaedic Surgery
DX: L03.113 Cellulitis of right upper limb (principal)

== ENCOUNTER → 2024-01-21 | Outpatient (CLI) | payer MEDICARE ==
[~2024-01-21] MED LIST changes: +AMLO2.5T3 PO; +ANAS1TAB2 PO; +POTA-141 PO
== END ==
LOC: M SOG 08:26
PROVIDERS: ATTEND Orthopaedic Surgery
DX: S42.201G Unspecified fracture of upper end of right humerus, subsequent encounter for fracture with delayed healing (principal); L03.113 Cellulitis of right upper limb

== ENCOUNTER → 2024-01-21 | Outpatient (CLI) | payer MEDICARE ==
[2024-01-21 17:12] LABS: BASO % 0.7 % (0.0-1.0); EOS # 0.1 10^3/uL (0.0-0.5); EOS % 1.5 % (0.0-3.0); HEMATOCRIT 39.4 % (36.0-47.0); HEMOGLOBIN 12.9 g/dl (12.0-15.5); LYMPH # 0.9 10^3/uL (1.5-5.0); LYMPH % 14.8 % (24.0-44.0); MEAN CORPUSCULAR HEMOGLOBIN 34.5 pg (27.0-33.0); MEAN CORPUSCULAR HGB CONC 32.7 g/dl (32.0-36.5); MEAN CORPUSCULAR VOLUME 105.3 fl (80.0-96.0); MONO # 0.4 10^3/uL (0.0-0.8); MONO % 6.7 % (2.0-8.0); NEUTROPHILS # 4.5 10^3/uL (1.5-8.5); NEUTROPHILS % 76.1 % (36.0-66.0); PLATELET COUNT, AUTOMATED 222 10^3/uL (150-450); RED BLOOD COUNT 3.74 10^6/uL (4.00-5.40); WHITE BLOOD COUNT 5.9 10^3/uL (4.0-10.0)
[2024-01-21 17:31] LABS: C REACTIVE PROTEIN QUANTITATIV < 0.40 MG/DL (<1.0)
[2024-01-21 17:33] LABS: ALBUMIN 3.5 G/DL (3.2-5.2); ALKALINE PHOSPHATASE 135 U/L (35-104); ALT/SGPT 19 U/L (7.0-40); AST/SGOT 36 U/L (<34); BILIRUBIN,TOTAL 0.8 MG/DL (0.3-1.2); BLOOD UREA NITROGEN 10 MG/DL (9-23); CALCIUM LEVEL 9.5 MG/DL (8.3-10.6); CARBON DIOXIDE LEVEL 28 MMOL/L (20-31); CHLORIDE LEVEL 105 MMOL/L (98-107); CREATININE FOR GFR 0.69 MG/DL (0.55-1.30); GLOMERULAR FILTRATION RATE > 60.0 (>39); GLUCOSE, FASTING 110 MG/DL (74-106); POTASSIUM SERUM 3.8 MMOL/L (3.5-5.1); SODIUM LEVEL 141 MMOL/L (136-145); TOTAL PROTEIN 6.7 G/DL (5.7-8.2)
== END ==
LOC: M PLALAB 14:42
PROVIDERS: ATTEND Orthopaedic Surgery
DX: S42.201K Unspecified fracture of upper end of right humerus, subsequent encounter for fracture with nonunion (principal)

== ENCOUNTER 2024-01-25 07:59 | Observation (INO) | payer MEDICARE ==
[~2024-01-25] VITALS: Ht 165.1 cm; Wt 99.1 kg
[2024-01-25] VITALS (8 sets, daily range): BP systolic 126–137; BP diastolic 66–71; TEMP 97.3–98.1; O2SAT 93–96
[2024-01-25] MEDS ORDERED: propofoL 200 MG/20 ML VIAL As Ordered ONE (08:43)
[2024-01-25] MEDS ORDERED: ROCURONIUM BROMIDE 50MG/5ML VIAL As Ordered ONE (08:43)
[2024-01-25] MEDS ORDERED: LIDOCAINE 2% 100MG/5ML SDV (FOR ANES.) As Ordered ONE (08:43)
[2024-01-25] MEDS ORDERED: GLYCOPYRROLATE INJ 0.2 MG/ML 2 ML VIAL As Ordered ONE (08:43)
[2024-01-25] MEDS ORDERED: ONDANSETRON 4MG 2ML VIAL As Ordered ONE (08:44)
[2024-01-25] MEDS ORDERED: fentaNYL 100 MCG/2 ML INJECTION As Ordered ONE (08:46)
[2024-01-25] MEDS ORDERED: MIDAZOLAM INJ 2MG/2ML VIAL As Ordered ONE (08:46)
[2024-01-25] MEDS ORDERED: ACETAMINOPHEN 1000MG/100ML IV BAG As Ordered ONE (08:58)
[2024-01-25] MEDS: MIDAZOLAM INJ 2MG/2ML VIAL IV PRN (09:24)
[2024-01-25] MEDS: fentaNYL 100 MCG/2 ML INJECTION IV PRN (09:24)
[2024-01-25] MEDS: LIDOCAINE 1% SDV 5ML VIAL PN ONE (09:28)
[2024-01-25] MEDS: ROPIvacaine 0.5% 30ML VIAL PN ONE (09:28)
[2024-01-25] MEDS: ceFAZolin SOD 2 GM in IV 1 EA IV ONE (10:15)
[2024-01-25] MEDS ORDERED: ePHEDrine SULFATE 25 MG/5 ML(5MG/ML) SYRINGE As Ordered ONE (10:47)
[2024-01-25] MEDS ORDERED: SUGAMMADEX SODIUM 500 MG/5 ML VIAL (BRIDION) As Ordered ONE (11:41)
[2024-01-25] MEDS: VANCOMYCIN 1000MG/20ML VIAL As Ordered ONE (12:28)
[2024-01-25] MEDS ORDERED: MEPERIDINE 25 MG/ML 1ML VIAL IV PRN (12:55)
[2024-01-25] MEDS ORDERED: METOCLOPRAMIDE INJ 10MG/2ML VIAL IV PRN (12:55)
[2024-01-25] MEDS ORDERED: diphenhydrAMINE 50MG/ML VIAL IV PRN (12:55)
[2024-01-25] MEDS ORDERED: oxyCODONE 5MG TAB PO PRN (12:55)
[2024-01-25] MEDS ORDERED: SENNA 8.6 MG TAB (SENOKOT) PO PRN (12:55)
[2024-01-25] MEDS ORDERED: fentaNYL 100 MCG/2 ML INJECTION IV PRN (12:55)
[2024-01-25] MEDS ORDERED: ONDANSETRON 4MG 2ML VIAL IV PRN (12:55)
[2024-01-25] MEDS ORDERED: HOME MED LIST COMPLETE! XX SCH (17:00)
[2024-01-25] MEDS: ceFAZolin SOD 2 GM in IV 1 EA IV SCH (18:42)
[2024-01-25] MEDS: ACETAMINOPHEN 325 MG TAB PO SCH (18:42)
[2024-01-25] MEDS: DOCUSATE SODIUM 100MG CAPSULE PO SCH (20:11)
[2024-01-26] MEDS ORDERED: SODIUM CHLORIDE 0.9% INJ 10 ML SYR IV PRN (03:40)
[2024-01-26] MEDS: LEVOTHYROXINE 88MCG TABLET (0.088 MG) PO SCH (06:02)
[2024-01-26 06:18] LABS: HEMATOCRIT 34.1 % (36.0-47.0); HEMOGLOBIN 11.4 g/dl (12.0-15.5); MEAN CORPUSCULAR HEMOGLOBIN 34.4 pg (27.0-33.0); MEAN CORPUSCULAR HGB CONC 33.4 g/dl (32.0-36.5); PLATELET COUNT, AUTOMATED 162 10^3/uL (150-450); RED BLOOD COUNT 3.31 10^6/uL (4.00-5.40); WHITE BLOOD COUNT 5.7 10^3/uL (4.0-10.0)
[2024-01-26 06:39] LABS: ALBUMIN 2.9 G/DL (3.2-5.2); ALKALINE PHOSPHATASE 130 U/L (35-104); ALT/SGPT 15 U/L (7.0-40); AST/SGOT 14 U/L (<34); BILIRUBIN,TOTAL 0.5 MG/DL (0.3-1.2); BLOOD UREA NITROGEN 8 MG/DL (9-23); CALCIUM LEVEL 8.5 MG/DL (8.3-10.6); CARBON DIOXIDE LEVEL 24 MMOL/L (20-31); CHLORIDE LEVEL 108 MMOL/L (98-107); CREATININE FOR GFR 0.61 MG/DL (0.55-1.30); GLOMERULAR FILTRATION RATE > 60.0 (>39); GLUCOSE, FASTING 118 MG/DL (74-106); SODIUM LEVEL 139 MMOL/L (136-145); TOTAL PROTEIN 5.8 G/DL (5.7-8.2)
[2024-01-26 09:30] VITALS: BP 151/78
[2024-01-26] MEDS: GABAPENTIN 100 MG CAP PO SCH (09:30)
[2024-01-26] MEDS: FUROSEMIDE 40 MG TAB PO SCH (09:30)
[2024-01-26] MEDS: FERROUS SULFATE 325MG TAB PO SCH (09:30)
[2024-01-26] MEDS: SPIRONOLACTONE 25 MG TAB PO SCH (09:30)
[2024-01-26] MEDS: ASCORBIC ACID 500 MG TAB PO SCH (09:30)
[2024-01-26] MEDS: MONTELUKAST 10 MG TAB PO SCH (09:32)
[2024-01-26] MEDS: traMADol 50 MG TAB PO PRN (09:36)
[2024-01-26] MEDS: SODIUM CHLORIDE 0.9% INJ 10 ML SYR IV SCH (09:37)
[2024-02-21] MEDS ORDERED: GALZ50CA PO (11:38)
[2024-02-21] MEDS ORDERED: LEFL20TA15 (11:38)
== END 2024-01-26 11:50 | disposition home or self-care (01) ==
LOC: M SDC 07:59 → M RR INP 08:00 → M MS5PR 15:45
PROVIDERS: ADMIT Orthopaedic Surgery; ATTEND Orthopaedic Surgery
DX: S42.291K Other displaced fracture of upper end of right humerus, subsequent encounter for fracture with nonunion (principal); I10 Essential (primary) hypertension; E03.9 Hypothyroidism, unspecified; Z92.3 Personal history of irradiation; Z85.3 Personal history of malignant neoplasm of breast; Z92.21 Personal history of antineoplastic chemotherapy; G47.33 Obstructive sleep apnea (adult) (pediatric); Z88.5 Allergy status to narcotic agent; Z88.1 Allergy status to other antibiotic agents; Z88.2 Allergy status to sulfonamides; Z79.899 Other long term (current) drug therapy
CPT/HCPCS: 24435; 36415; 73060; 76000; 80053; 85027; 96365; 96366; 97161; C1713; G0378; J0131; J0690; J1100; J1596; J1642; J2250; J2405; J2795; J3010; J3370

== ENCOUNTER → 2024-02-04 | Outpatient (CLI) | payer MEDICARE | LOC: M SOG 07:55 | PROVIDERS: ATTEND Orthopaedic Surgery | DX: S42.251G Displaced fracture of greater tuberosity of right humerus, subsequent encounter for fracture with delayed healing (principal); Z47.89 Encounter for other orthopedic aftercare ==

== ENCOUNTER → 2024-03-06 | Outpatient (CLI) | payer MEDICARE ==
[~2024-03-06] MED LIST changes: +GALZ50CA PO; +LEFL20TA15
== END ==
LOC: M SOG 07:53
PROVIDERS: ATTEND Orthopaedic Surgery
DX: S42.201K Unspecified fracture of upper end of right humerus, subsequent encounter for fracture with nonunion (principal)

== ENCOUNTER → 2024-04-19 | Outpatient (CLI) | payer MEDICARE ==
[~2024-04-19] MED LIST changes: +VANC125C13 PO; -VANC125C3 PO
== END ==
LOC: M SOG 07:51
PROVIDERS: ATTEND Orthopaedic Surgery
DX: S42.201G Unspecified fracture of upper end of right humerus, subsequent encounter for fracture with delayed healing (principal)

== ENCOUNTER → 2024-05-29 | Outpatient (REF) | payer MEDICARE ==
[2024-05-29 12:30] LABS: BASO # 0.1 10^3/uL (0.0-0.2); BASO % 1.1 % (0.0-1.0); EOS # 0.1 10^3/uL (0.0-0.5); HEMATOCRIT 38.4 % (36.0-47.0); HEMOGLOBIN 12.6 g/dl (12.0-15.5); LYMPH # 1.2 10^3/uL (1.5-5.0); LYMPH % 26.2 % (24.0-44.0); MEAN CORPUSCULAR HEMOGLOBIN 33.2 pg (27.0-33.0); MEAN CORPUSCULAR HGB CONC 32.8 g/dl (32.0-36.5); MEAN CORPUSCULAR VOLUME 101.1 fl (80.0-96.0); MONO # 0.5 10^3/uL (0.0-0.8); MONO % 9.7 % (2.0-8.0); NEUTROPHILS # 2.8 10^3/uL (1.5-8.5); NEUTROPHILS % 59.6 % (36.0-66.0); PLATELET COUNT, AUTOMATED 194 10^3/uL (150-450); WHITE BLOOD COUNT 4.7 10^3/uL (4.0-10.0)
[2024-05-29 12:51] LABS: ERYTHROCYTE SEDIMENTATION RATE 36 mm/hr (0-30)
[2024-05-29 12:56] LABS: C REACTIVE PROTEIN QUANTITATIV < 0.50 MG/DL (<1.0)
[2024-05-29 12:57] LABS: ALT/SGPT 15 U/L (7.0-40); AST/SGOT 17 U/L (<34); BLOOD UREA NITROGEN 12 MG/DL (9-23); CREATININE FOR GFR 0.79 MG/DL (0.55-1.30); GLOMERULAR FILTRATION RATE > 60.0 (>39)
== END ==
LOC: M LAB REF 11:43
PROVIDERS: ATTEND Physician Assistant Medical
DX: M06.09 Rheumatoid arthritis without rheumatoid factor, multiple sites (principal); Z79.899 Other long term (current) drug therapy; M25.50 Pain in unspecified joint

== ENCOUNTER → 2024-05-29 | Outpatient (CLI) | payer MEDICARE | LOC: M WHC 13:55 | PROVIDERS: ATTEND Dietitian, Registered | DX: C50.911 Malignant neoplasm of unspecified site of right female breast (principal) ==

== ENCOUNTER → 2024-05-29 | Outpatient (REF) | payer MEDICARE ==
[2024-05-29 12:30] LABS: BASO % 0.9 % (0.0-1.0); EOS # 0.1 10^3/uL (0.0-0.5); EOS % 3.1 % (0.0-3.0); HEMATOCRIT 37.9 % (36.0-47.0); HEMOGLOBIN 12.6 g/dl (12.0-15.5); LYMPH # 1.2 10^3/uL (1.5-5.0); LYMPH % 26.7 % (24.0-44.0); MEAN CORPUSCULAR HEMOGLOBIN 33.6 pg (27.0-33.0); MEAN CORPUSCULAR HGB CONC 33.2 g/dl (32.0-36.5); MEAN CORPUSCULAR VOLUME 101.1 fl (80.0-96.0); MONO # 0.5 10^3/uL (0.0-0.8); MONO % 10.4 % (2.0-8.0); NEUTROPHILS # 2.6 10^3/uL (1.5-8.5); NEUTROPHILS % 58.7 % (36.0-66.0); PLATELET COUNT, AUTOMATED 185 10^3/uL (150-450); RED BLOOD COUNT 3.75 10^6/uL (4.00-5.40); WHITE BLOOD COUNT 4.5 10^3/uL (4.0-10.0)
[2024-05-29 12:59] LABS: IRON (FE) 160 UG/DL (50-170)
[2024-05-29 13:03] LABS: ALBUMIN 3.6 G/DL (3.2-5.2); ALKALINE PHOSPHATASE 108 U/L (35-104); ALT/SGPT 13 U/L (7.0-40); AST/SGOT 17 U/L (<34); BILIRUBIN,TOTAL 0.8 MG/DL (0.3-1.2); BLOOD UREA NITROGEN 13 MG/DL (9-23); CALCIUM LEVEL 9.2 MG/DL (8.3-10.6); CARBON DIOXIDE LEVEL 28 MMOL/L (20-31); CHLORIDE LEVEL 103 MMOL/L (98-107); CHOLESTEROL LEVEL 131 MG/DL (<200); CHOLESTEROL RISK RATIO 3.73 (<5); FERRITIN 220.5 NG/ML (7.3-270.7); GLOMERULAR FILTRATION RATE > 60.0 (>39); GLUCOSE, FASTING 94 MG/DL (74-106); HDL CHOLESTEROL 35.1 MG/DL (>40); LDL CHOLESTEROL 61.3 MG/DL (<100); NON-HDL-C 95.9 MG/DL; POTASSIUM SERUM 3.5 MMOL/L (3.5-5.1); SODIUM LEVEL 138 MMOL/L (136-145); THYROID STIMULATING HORMONE 3.416 uIU/ML (0.55-4.78); TOTAL 25(OH) VITAMIN D 78.8 NG/ML (20.0-100.0); TOTAL PROTEIN 6.7 G/DL (5.7-8.2); TRIGLYCERIDES LEVEL 173 MG/DL (<150); VITAMIN B12 LEVEL 1210 PG/ML (211-911)
[2024-05-29 13:06] LABS: HEMOGLOBIN A1c 4.5 % (4.0-6.0)
== END ==
LOC: M LAB REF 11:47
PROVIDERS: ATTEND Nurse Practitioner Family
DX: A49.02 Methicillin resistant Staphylococcus aureus infection, unspecified site (principal); E03.9 Hypothyroidism, unspecified; E66.9 Obesity, unspecified; R73.9 Hyperglycemia, unspecified; E55.9 Vitamin D deficiency, unspecified

== ENCOUNTER → 2024-06-19 | Outpatient (REF) | payer MEDICARE | LOC: M LAB REF 13:54 | PROVIDERS: ATTEND Nurse Practitioner Family | DX: E87.6 Hypokalemia (principal) ==

== ENCOUNTER → 2024-06-19 | Outpatient (CLI) | payer MEDICARE | LOC: M SOG 07:52 | PROVIDERS: ATTEND Orthopaedic Surgery | DX: S42.201G Unspecified fracture of upper end of right humerus, subsequent encounter for fracture with delayed healing (principal) ==

== ENCOUNTER → 2024-07-04 | Outpatient (CLI) | payer MEDICARE ==
[~2024-07-04] MED LIST changes: -GALZ50CA PO; +ZINC50CA4 PO
== END ==
LOC: M ONCR 11:24
PROVIDERS: ATTEND General Practice
DX: Z08 Encounter for follow-up examination after completed treatment for malignant neoplasm (principal); Z85.3 Personal history of malignant neoplasm of breast; Z90.12 Acquired absence of left breast and nipple; Z92.21 Personal history of antineoplastic chemotherapy; Z92.3 Personal history of irradiation; Z79.811 Long term (current) use of aromatase inhibitors; Z79.61 Long term (current) use of immunomodulator; Z79.899 Other long term (current) drug therapy; Z88.1 Allergy status to other antibiotic agents; Z88.2 Allergy status to sulfonamides; Z88.5 Allergy status to narcotic agent; Z87.891 Personal history of nicotine dependence

== ENCOUNTER → 2024-07-19 | Outpatient (REF) | payer MEDICARE ==
[~2024-07-19] MED LIST changes: +D31000CA6 PO; -VITA-183 PO
[2024-07-19 11:31] LABS: EOS # 0.1 10^3/uL (0.0-0.5); EOS % 4.2 % (0.0-3.0); HEMATOCRIT 37.3 % (36.0-47.0); HEMOGLOBIN 12.4 g/dl (12.0-15.5); LYMPH # 0.8 10^3/uL (1.5-5.0); LYMPH % 26.6 % (24.0-44.0); MEAN CORPUSCULAR HEMOGLOBIN 33.5 pg (27.0-33.0); MEAN CORPUSCULAR HGB CONC 33.2 g/dl (32.0-36.5); MEAN CORPUSCULAR VOLUME 100.8 fl (80.0-96.0); MONO # 0.3 10^3/uL (0.0-0.8); MONO % 9.9 % (2.0-8.0); NEUTROPHILS # 1.8 10^3/uL (1.5-8.5); PLATELET COUNT, AUTOMATED 172 10^3/uL (150-450); WHITE BLOOD COUNT 3.1 10^3/uL (4.0-10.0)
[2024-07-19 11:41] LABS: ERYTHROCYTE SEDIMENTATION RATE 38 mm/hr (0-30)
[2024-07-19 11:55] LABS: ALT/SGPT 13 U/L (7.0-40); AST/SGOT 18 U/L (<34); BLOOD UREA NITROGEN 15 MG/DL (9-23); C REACTIVE PROTEIN QUANTITATIV < 0.50 MG/DL (<1.0); CREATININE FOR GFR 0.78 MG/DL (0.55-1.30); GLOMERULAR FILTRATION RATE 79.7 (>39)
== END ==
LOC: M LAB REF 11:01
PROVIDERS: ATTEND Physician Assistant Medical
DX: M06.09 Rheumatoid arthritis without rheumatoid factor, multiple sites (principal); Z79.899 Other long term (current) drug therapy; M25.50 Pain in unspecified joint

== ENCOUNTER → 2024-09-26 | Outpatient (CLI) | payer MEDICARE | LOC: M SOG 06:50 | PROVIDERS: ATTEND Orthopaedic Surgery | DX: S42.201G Unspecified fracture of upper end of right humerus, subsequent encounter for fracture with delayed healing (principal) ==

== ENCOUNTER 2024-10-23 17:40 | Emergency (ER) | payer MEDICARE ==
[~2024-10-23] VITALS: Ht 165.1 cm; Wt 105.3 kg
[2024-10-23 19:06] LABS: BASO # 0.0 10^3/uL (0.0-0.2); BASO % 0.6 % (0.0-1.0); EOS # 0.1 10^3/uL (0.0-0.5); EOS % 1.3 % (0.0-3.0); LYMPH # 1.0 10^3/uL (1.5-5.0); LYMPH % 16.3 % (24.0-44.0); MONO # 0.5 10^3/uL (0.0-0.8); MONO % 8.6 % (2.0-8.0); NEUTROPHILS # 4.5 10^3/uL (1.5-8.5); NEUTROPHILS % 72.9 % (36.0-66.0); PLATELET COUNT, AUTOMATED 249 10^3/uL (150-450)
[2024-10-23 19:17] LABS: C REACTIVE PROTEIN QUANTITATIV 3.55 MG/DL (<1.0); CALCIUM LEVEL 9.1 MG/DL (8.3-10.6); CARBON DIOXIDE LEVEL 27.0 MMOL/L (20-31); CHLORIDE LEVEL 103.0 MMOL/L (98-107); CREATININE FOR GFR 0.79 MG/DL (0.55-1.30); GLOMERULAR FILTRATION RATE 78.0 (>39); POTASSIUM SERUM 3.8 MMOL/L (3.5-5.1); SODIUM LEVEL 140.0 MMOL/L (136-145)
[2024-10-23 19:19] LABS: ERYTHROCYTE SEDIMENTATION RATE 90 mm/hr (0-30)
[2024-10-23] MEDS ORDERED: SODIUM CHLORIDE 0.9% INJ 10 ML SYR IV PRN (20:20)
[2024-10-23] MEDS ORDERED: HEPARIN LOCK FLUSH 100 UNITS/ML 3 ML SYRINGE IV PRN (20:20)
[2024-10-23] MEDS ORDERED: PROHANCE 279.3MG/ML 5ML VIAL As Ordered ONE (21:47)
[2024-10-23] MEDS ORDERED: PROHANCE 279.3MG/ML 15ML VIAL As Ordered ONE (21:48)
[2024-10-24] MEDS: VANCOMYCIN HCL 2,000 MG, VIAL MATE ADAPTER 1 EACH in NS 500 ML IV ONE (00:22)
[2024-10-24 08:30] VITALS: BP 136/63; TEMP 97.2; O2SAT 98
== END 2024-10-24 08:43 | disposition short-term general hospital (02) ==
LOC: M ED 17:40
DX: M86.171 Other acute osteomyelitis, right ankle and foot (principal); I10 Essential (primary) hypertension; E78.5 Hyperlipidemia, unspecified; G47.33 Obstructive sleep apnea (adult) (pediatric); Z87.891 Personal history of nicotine dependence; Z86.79 Personal history of other diseases of the circulatory system; Z88.2 Allergy status to sulfonamides; Z88.5 Allergy status to narcotic agent; Z88.8 Allergy status to other drugs, medicaments and biological substances; Z85.3 Personal history of malignant neoplasm of breast; Z79.2 Long term (current) use of antibiotics; Z79.899 Other long term (current) drug therapy
CPT/HCPCS: 73660; 73720; 80048; 85025; 85652; 86140; 87040; 87070; 87077; 87186; 87205; 96374; 99285; A9576; J3374

== ENCOUNTER → 2024-11-15 | Outpatient (REF) | payer MEDICARE ==
[2024-11-15 16:14] LABS: BASO # 0.1 10^3/uL (0.0-0.2); BASO % 1.4 % (0.0-1.0); EOS # 0.2 10^3/uL (0.0-0.5); EOS % 6.0 % (0.0-3.0); LYMPH # 1.1 10^3/uL (1.5-5.0); LYMPH % 29.6 % (24.0-44.0); MONO # 0.4 10^3/uL (0.0-0.8); MONO % 11.0 % (2.0-8.0); NEUTROPHILS # 1.9 10^3/uL (1.5-8.5); NEUTROPHILS % 51.7 % (36.0-66.0); PLATELET COUNT, AUTOMATED 153 10^3/uL (150-450)
[2024-11-15 16:19] LABS: ERYTHROCYTE SEDIMENTATION RATE 48 mm/hr (0-30)
[2024-11-15 16:45] LABS: ALT/SGPT 21 U/L (7.0-40); AST/SGOT 26 U/L (<34); C REACTIVE PROTEIN QUANTITATIV < 0.50 MG/DL (<1.0); CREATININE FOR GFR 0.81 MG/DL (0.55-1.30); GLOMERULAR FILTRATION RATE 75.7 (>39)
== END ==
LOC: M LAB REF 15:32
PROVIDERS: ATTEND Physician Assistant Medical
DX: M06.09 Rheumatoid arthritis without rheumatoid factor, multiple sites (principal); Z79.899 Other long term (current) drug therapy